=== PATIENT | female | born 1980 | race Caucasian/White ===

== ENCOUNTER 2018-06-14 05:28 | Day surgery (SDC) | payer MEDICAID ==
[2018-06-14] MEDS: BUPIVACAINE 0.5%/EPI (SDV) 30 ML INJ
[2018-06-14] MEDS: LACTATED RINGER'S 1,000 ML IV (06:55)
[2018-06-14] MEDS ORDERED: METOCLOPRAMIDE 10 MG INJ (07:00)
[2018-06-14] MEDS ORDERED: DEXAMETHASONE 4 MG/ML 5 ML INJ (07:00)
[2018-06-14] MEDS ORDERED: SUCCINYLCHOLINE CHLORIDE 100 MG/5 ML SYG IV (07:29)
[2018-06-14] MEDS ORDERED: FENTAnyl 50 MCG/ML VIAL (07:29)
[2018-06-14] MEDS ORDERED: MIDAZOLAM 1 MG/ML 2 ML INJ (07:29)
[2018-06-14] MEDS ORDERED: LIDOCAINE 2% (SDV) 5 ML INJ (07:29)
[2018-06-14] MEDS ORDERED: PROPOFOL 20 ML (07:29)
[2018-06-14] MEDS ORDERED: ROCURONIUM 50 MG INJ (07:29)
[2018-06-14] MEDS ORDERED: LEVALBUTEROL (NEB) 1.25 MG/0.5 ML AMP HHN (07:30)
[2018-06-14] MEDS ORDERED: HYDROmorphONE 1 MG/5 ML IV SYRINGE IV ×2 (07:30)
[2018-06-14] MEDS ORDERED: DIPHENHYDRAMINE 50 MG INJ IV (07:30)
[2018-06-14] MEDS ORDERED: ONDANSETRON 4 MG INJ (07:30)
[2018-06-14] MEDS ORDERED: FENTAnyl 50 MCG/ML VIAL IV (07:30)
[2018-06-14] MEDS ORDERED: CEFAZOLIN 1 GM INJ (07:32)
[2018-06-14] MEDS ORDERED: ROPIVACAINE 0.5 % 30 ML VIAL (08:52)
[2018-06-14] MEDS: MEPERIDINE 25 MG INJ IV (09:17)
[2018-06-14] MEDS: ONDANSETRON 4 MG INJ IV (09:18)
[2018-06-14] MEDS: KETOROLAC 30 MG INJ IV (09:18)
[2018-06-14] MEDS: FENTAnyl 50 MCG/ML VIAL IV ×2 (09:18→09:25)
[2018-06-14] MEDS: CEFTRIAXONE 2 GM/50 ML (PMX) 50 ML IVPB (09:35)
[2018-06-14] MEDS: DOXYCYCLINE 100 MG in SOD CHLORIDE 0.9% 250 ML IVPB (09:36)
== END 2018-06-14 11:45 | disposition home or self-care (01) ==
LOC: SDS 05:28
DX: Z30.2 Encounter for sterilization (principal); R94.31 Abnormal electrocardiogram [ECG] [EKG]
CPT/HCPCS: 58661; 93005